=== PATIENT | female | born 1975 | race Caucasian/White ===

== ENCOUNTER 2017-12-02 07:18 | Inpatient (IN) | payer OTHER ==
[2017-12-02] MEDS ORDERED: SODIUM CHLORIDE 0.9% 1000 ML INFUS.BAG IV STA (07:49)
--- NOTE | 2017-12-02 07:49 | PDOC ---
History of Present Illness - General History Source: Patient Exam Limitations: No Limitations <Elana Cifuentes - Last Filed: 12/02/17 11:59> - History of Present Illness Initial Comments: Patient is a 42 year old female with PMHx of fibroids, anemia, who presents with 3 days of right flank pain. Patient states that her right flank pain began 3 days ago, rates her pain 10/10. She states that she took some Advil which initially helped her pain but her pain soon returned. This morning she reports that she woke up and vomited 1x, which prompted her to come to the ER. She also notes a subjective fever. She states that she had her period 3x this month and according to her primary this is normal stating that she is yolis-menopausal. She denies any chest pain, shortness of breath. She denies any pain or burning when she urinates, hematuria, hematochezia. Allergies: NKDA Social Hx: Denies EtOH, tobacco, or illicit drug use. [facility] <Alisa Rubin - Last Filed: 12/02/17 14:23> - General Chief Complaint: Pain, Acute Stated Complaint: BACK PAIN Time Seen by Provider: 12/02/17 07:49 Past History - Past Medical History Anemia: Yes COPD: No - Suicide/Smoking/Psychosocial Hx Smoking History: Never smoked Hx Alcohol Use: No Drug/Substance Use Hx: No <Elana Cifuentes - Last Filed: 12/02/17 11:59> <Alisa Rubin - Last Filed: 12/02/17 14:23> - Past Medical History Allergies/Adverse Reactions: Allergies Allergy/AdvReac Type Severity Reaction Status Date / Time No Known Allergies Allergy Verified 12/02/17 07:34 Home Medications: Ambulatory Orders NK [No Known Home Medication] 12/02/17 Review of Systems - Review of Systems Comments:: GENERAL/CONSTITUTIONAL: +subjective fevers No: chills, weakness, loss of appetite. HEAD, EYES, EARS, NOSE AND THROAT: No: change in vision, ear pain, discharge, sore throat, throat swelling. CARDIOVASCULAR: No: chest pain, lightheadedness, palpitations, syncope RESPIRATORY: No: cough, shortness of breath, wheezing, hemoptysis, stridor. GASTROINTESTINAL: +vomit (1x) No: nausea, abdominal cramping, diarrhea, rectal bleeding, constipation. GENITOURINARY: No: dysuria, hematuria, frequency, urgency, flank pain. MUSCULOSKELETAL: +Right flank pain. No: neck pain, joint pain. SKIN: No: lesions, pallor, rash or easy bruising. NEUROLOGIC: No: headache, vertigo, paresthesias, weakness ENDOCRINE: No: unexplained weight gain or loss HEMATOLOGIC/LYMPHATIC: No: anemia, easy bleeding, swelling nodes <Alisa Rubin - Last Filed: 12/02/17 14:23> *Physical Exam - Vital Signs Last Vital Signs Temp Pulse Resp BP Pulse Ox 101.8 F H 113 H 22 H 100/69 98 12/02/17 07:30 12/02/17 07:30 12/02/17 07:30 12/02/17 07:30 12/02/17 07:30 <EsauElana - Last Filed: 12/02/17 11:59> - Vital Signs Last Vital Signs Temp Pulse Resp BP Pulse Ox 101.8 F H 113 H 22 H 100/69 98 12/02/17 07:30 12/02/17 07:30 12/02/17 07:30 12/02/17 07:30 12/02/17 07:30 - Physical Exam Comments: GENERAL: The patient is in no acute distress. HEAD: Normal with no signs of trauma. EYES: PERRLA, EOMI, sclera anicteric, conjunctiva clear. ENT: Ears normal, nares patent, oropharynx clear without exudates. Moist mucous membranes. NECK: Normal range of motion, supple without lymphadenopathy, JVD, or masses. LUNGS: Breath sounds equal, clear to auscultation bilaterally. No wheezes, and no crackles. HEART:Tachycardic, regular rate and rhythm, normal S1 and S2 without murmur, rub or gallop. ABDOMEN: Soft, nontender, normoactive bowel sounds. No guarding, no rebound. BACK: Right CVA tenderness EXTREMITIES: Normal range of motion, no edema. No clubbing or cyanosis. No erythema, or tenderness. NEUROLOGICAL: Cranial nerves II through XII grossly intact. Normal speech. No focal neurological deficits. MUSCULOSKELETAL: Back nontender to palpation, no CVA tenderness SKIN: Warm to touch, dry, normal turgor, no rashes or lesions noted. <Alisa Rubin - Last Filed: 12/02/17 14:23> ED Treatment Course - LABORATORY CBC & Chemistry Diagram: 12/02/17 07:50 12/02/17 07:50 <Elana Cifuentes - Last Filed: 12/02/17 11:59> - LABORATORY CBC & Chemistry Diagram: 12/02/17 07:50 12/02/17 07:50 - RADIOLOGY Radiograph Interpretation: Chest x-ray Impression: No evidence of active pulmonary disease Reported By: Trent Sanders MD 12/02/17 11:[address] Impression: Essentially normal CT scan of the abdomen and pelvis with no evidence of urinary tract calculi, obstructive uropathy or acute pathology. Reported By: Aries Dunn MD 12/02/17 1122 <Alisa Rubin - Last Filed: 12/02/17 14:23> Medical Decision Making - Medical Decision Making 12/02/17 08:10 42 yo F presenting to the ER with Right flank pain x 3 days Pt febrile in ER no prior episodes like this DD includes: Pyelonephritis, Urosepsis, Infected Kidney Stone Will do: Labs/sepsis order set, IVF, Tylenol, UA, Spiral CT 12/02/17 09:12 Laboratory Tests 12/02/17 12/02/17 07:50 08:25 WBC 12.1 H Hgb 11.8 Hct 35.5 Plt Count 235 Absolute Neuts (auto) 10.6 H Neutrophils % 87.6 H VBG pH 7.43 H POC VBG pCO2 34.3 L POC VBG pO2 52.1 H Mixed VBG HCO3 22.4 12/02/17 09:13 CXR: nml 12/02/17 09:22 Laboratory Tests 12/02/17 12/02/17 07:50 07:50 Sodium 138 Potassium 3.8 Chloride 107 Carbon Dioxide 24 BUN 12 Creatinine 0.8 Random Glucose 129 H Lactic Acid 0.9 12/02/17 09:24 Laboratory Tests 12/02/17 08:57 Urine HCG, Qual Negative 12/02/17 09:34 Laboratory Tests 12/02/17 09:00 Urine Blood 1+ H Urine Nitrite Positive Ur Leukocyte Esterase 3+ H Urine WBC (Auto) 1119 Urine RBC (Auto) 17 Ur Epithelial Cells Few Urine Bacteria Many Hyaline Casts 10 Urine Mucus Few Will do spiral Eval for obstructing stone Will plan to admit 12/02/17 10:18 Twelve-lead EKG was performed and reviewed by me. There is normal sinus rhythm with a normal rate. The axis is normal. The intervals are normal. There are no ST or T wave abnormalities. Impression: Normal twelve-lead EKG 12/02/17 11:44 CT negative I have reviewed results with this patient She was nauseous prior to arrival, continues to have pain Would be willing to stay in the hospital Will place on observation Clinical Impression: Pyelonephritis, initial presentation <Elana Cifuentes - Last Filed: 12/02/17 11:59> *DC/Admit/Observation/Transfer - Discharge Dispostion Decision to Admit order: Yes <Elana Cifuentes - Last Filed: 12/02/17 11:59> - Attestations Scribe Attestion: 12/02/17 08:16 Documentation prepared by Alisa Rubin, acting as medical staffing coordinator for Elana Cifuentes MD. <Alisa Rubin - Last Filed: 12/02/17 14:23> Diagnosis at time of Disposition: Pyelonephritis - Discharge Dispostion Condition at time of disposition: Stable
[2017-12-02] MEDS ORDERED: ACETAMINOPHEN 1000 MG/100 ML VIAL (NON FORMULARY) IVPB ONE (08:07)
[2017-12-02 08:53] LABS: VENOUS PC02 34.3 mmHg (38-52); VENOUS PH 7.43 (7.32-7.42); VENOUS PO2 52.1 mmHg (28-48)
[2017-12-02 08:55] LABS: BASO % 0.2 % (0-2.0); HEMATOCRIT 35.5 % (32.4-45.2); HEMOGLOBIN 11.8 GM/dL (10.7-15.3); LYMPH % 6.2 % (8-40); MCH 30.4 pg (25.7-33.7); MCHC 33.2 g/dl (32.0-36.0); MEAN CELL VOLUME 91.7 fl (80-96); MEAN PLT VOLUME 8.4 fl (7.5-11.1); NEUT % 87.6 % (42.8-82.8); PLATELET COUNT 235 K/MM3 (134-434); RBC 3.87 M/mm3 (3.60-5.2); RDW 14.2 % (11.6-15.6); WHITE BLOOD COUNT 12.1 K/mm3 (4.0-10.0)
[2017-12-02] MEDS ORDERED: ACETAMINOPHEN INJECTION 100 ML IVPB ONE (09:01)
[2017-12-02 09:08] LABS: INR 1.07 (0.83-1.09); PROTHROMBIN TIME (PATIENT) 12.1 SEC (9.7-13.0)
[2017-12-02 09:11] LABS: ACTIVATED PTT 28.9 SECONDS (25.2-36.5)
[2017-12-02 09:17] LABS: ALBUMIN 3.7 g/dl (3.4-5.0); ALK PHOS 60 U/L (45-117); ANION GAP 7 MMOL/L (8-16); BILIRUBIN,TOTAL 0.6 mg/dL (0.2-1); BLOOD UREA NITROGEN 12 mg/dL (7-18); CALCIUM 8.7 mg/dL (8.5-10.1); CHLORIDE 107 mmol/L (98-107); CO2 24 mmol/L (21-32); CREATININE 0.8 mg/dL (0.55-1.3); GLUCOSE,RANDOM 129 mg/dL (74-106); POTASSIUM 3.8 mmol/L (3.5-5.1); SGOT/AST 16 U/L (15-37); SGPT/ALT 24 U/L (13-61); SODIUM 138 mmol/L (136-145)
[2017-12-02 09:21] LABS: URINE APPEARANCE CLOUDY; URINE BILIRUBIN NEGATIVE (<2.0 mg/dL); URINE COLOR DKYELLOW; URINE GLUCOSE (UA) NEGATIVE (NEGATIVE); URINE KETONE 1+ (NEGATIVE); URINE NITRITE POSITIVE (NEGATIVE); URINE UROBILINOGEN NEGATIVE mg/dL (0.2-1.0)
[2017-12-02] MEDS ORDERED: CEFTRIAXONE 1 GM in DEXTROSE 5%-WATER - 50 ML IVPB ONE (09:22)
[2017-12-02 09:25] LABS: URINE LEUK ESTERASE 3+ (NEGATIVE); URINE PROTEIN 2+ (NEGATIVE)
[2017-12-02 09:31] LABS: EPI CELLS FEW /HPF (FEW); URINE BACTERIA MANY /hpf (NONE SEEN); URINE HYALINE CAST 10 /lpf; URINE MUCUS FEW
[2017-12-02] MEDS ORDERED: CEFTRIAXONE 1 GM/50 ML BAG ONE (09:40)
[2017-12-02] MEDS ORDERED: SODIUM CHLORIDE 1,000 ML IV STA (11:44)
--- NOTE | 2017-12-02 13:21 | EKG ---
Test Reason : Blood Pressure : / mmHG Vent. Rate : 071 BPM Atrial Rate : 071 BPM P-R Int : 130 ms QRS Dur : 098 ms QT Int : 396 ms P-R-T Axes : 049 025 035 degrees QTc Int : 430 ms NORMAL SINUS RHYTHM NORMAL ECG NO PREVIOUS ECGS AVAILABLE Confirmed by ECTOR VINSON, SAULO ([id number]) on 12/02/2017 1:20:49 PM Referred By: Confirmed By:SAULO BARNEY MD
[2017-12-02 15:05] VITALS: BMI 213.4
[2017-12-02] MEDS ORDERED: FLU VACCINE QUAD 60 MCG/0.5 ML (MDV 18-19) IM ONE (15:30)
--- NOTE | 2017-12-02 15:47 | HP ---
Admitting History and Physical - Primary Care Physician PCP: Jose Garcia - Admission History of Present Illness: Patient is a 42 year old female with PMHx of fibroids, anemia, who presents with 3 days of right flank pain. Patient states that her right flank pain began 3 days ago, rates her pain 10/10. She states that she took some Advil which initially helped her pain but her pain soon returned. This morning she reports that she woke up and vomited 1x, which prompted her to come to the ER. She also notes a subjective fever. She states that she had her period 3x this month and according to her primary this is normal stating that she is yolis-menopausal. - Past Medical History ...LMP: 11/25/17 ...: No - Smoking History Smoking history: Never smoked - Alcohol/Substance Use Hx Alcohol Use: No Home Medications - Allergies Allergies/Adverse Reactions: Allergies Allergy/AdvReac Type Severity Reaction Status Date / Time No Known Allergies Allergy Verified 12/02/17 07:34 - Home Medications Home Medications: Ambulatory Orders NK [No Known Home Medication] 12/02/17 Physical Examination Vital Signs: Vital Signs Temperature 98.2 F 12/02/17 11:59 Pulse Rate 93 H 12/02/17 11:59 Respiratory Rate 18 12/02/17 11:59 Blood Pressure 132/97 12/02/17 11:59 O2 Sat by Pulse Oximetry (%) 99 12/02/17 11:00 Constitutional: Yes: No Distress HENT: Yes: Atraumatic Neck: Yes: Supple Cardiovascular: Yes: Regular Rate and Rhythm Respiratory: Yes: CTA Bilaterally Gastrointestinal: Yes: Normal Bowel Sounds Renal/: Yes: CVA Tenderness - Right Extremities: Yes: WNL Edema: No Peripheral Pulses WNL: Yes Neurological: Yes: Alert, Oriented Labs: CBC, BMP 12/02/17 07:50 12/02/17 07:50 Problem List - Problems (1) Pyelonephritis Assessment/Plan: on iv abx prbn pain mes cxs sent id consult Code(s): N12 - TUBULO-INTERSTITIAL NEPHRITIS, NOT SPCF ACUTE OR CHRONIC Assessment/Plan Laboratory Tests 12/02/17 12/02/17 12/02/17 07:50 07:50 07:50 WBC 12.1 H RBC 3.87 Hgb 11.8 Hct 35.5 MCV 91.7 MCH 30.4 MCHC 33.2 RDW 14.2 Plt Count 235 MPV 8.4 Absolute Neuts (auto) 10.6 H Neutrophils % 87.6 H Lymphocytes % 6.2 L Monocytes % 6.0 Eosinophils % 0.0 Basophils % 0.2 Nucleated RBC % 0 PT with INR 12.10 INR 1.07 PTT (Actin FS) 28.9 VBG pH POC VBG pCO2 POC VBG pO2 Mixed VBG HCO3 Sodium 138 Potassium 3.8 Chloride 107 Carbon Dioxide 24 Anion Gap 7 L BUN 12 Creatinine 0.8 Creat Clearance w eGFR > 60 Random Glucose 129 H Lactic Acid Calcium 8.7 Total Bilirubin 0.6 AST 16 ALT 24 Alkaline Phosphatase 60 Troponin I < 0.02 Total Protein 7.0 Albumin 3.7 Urine Color Urine Appearance Urine pH Ur Specific [place] Urine Protein Urine Glucose (UA) Urine Ketones Urine Blood Urine Nitrite Urine Bilirubin Urine Urobilinogen Ur Leukocyte Esterase Urine WBC (Auto) Urine RBC (Auto) Ur Epithelial Cells Urine Bacteria Hyaline Casts Urine Mucus Urine HCG, Qual 12/02/17 12/02/17 12/02/17 07:50 08:25 08:57 WBC RBC Hgb Hct MCV MCH MCHC RDW Plt Count MPV Absolute Neuts (auto) Neutrophils % Lymphocytes % Monocytes % Eosinophils % Basophils % Nucleated RBC % PT with INR INR PTT (Actin FS) VBG pH 7.43 H POC VBG pCO2 34.3 L POC VBG pO2 52.1 H Mixed VBG HCO3 22.4 Sodium Potassium Chloride Carbon Dioxide Anion Gap BUN Creatinine Creat Clearance w eGFR Random Glucose Lactic Acid 0.9 Calcium Total Bilirubin AST ALT Alkaline Phosphatase Troponin I Total Protein Albumin Urine Color Urine Appearance Urine pH Ur Specific [place] Urine Protein Urine Glucose (UA) Urine Ketones Urine Blood Urine Nitrite Urine Bilirubin Urine Urobilinogen Ur Leukocyte Esterase Urine WBC (Auto) Urine RBC (Auto) Ur Epithelial Cells Urine Bacteria Hyaline Casts Urine Mucus Urine HCG, Qual Negative 12/02/17 09:00 WBC RBC Hgb Hct MCV MCH MCHC RDW Plt Count MPV Absolute Neuts (auto) Neutrophils % Lymphocytes % Monocytes % Eosinophils % Basophils % Nucleated RBC % PT with INR INR PTT (Actin FS) VBG pH POC VBG pCO2 POC VBG pO2 Mixed VBG HCO3 Sodium Potassium Chloride Carbon Dioxide Anion Gap BUN Creatinine Creat Clearance w eGFR Random Glucose Lactic Acid Calcium Total Bilirubin AST ALT Alkaline Phosphatase Troponin I Total Protein Albumin Urine Color Dkyellow Urine Appearance Cloudy Urine pH 6.0 Ur Specific [place] 1.020 Urine Protein 2+ H Urine Glucose (UA) Negative Urine Ketones 1+ H Urine Blood 1+ H Urine Nitrite Positive Urine Bilirubin Negative Urine Urobilinogen Negative Ur Leukocyte Esterase 3+ H Urine WBC (Auto) 1119 Urine RBC (Auto) 17 Ur Epithelial Cells Few Urine Bacteria Many Hyaline Casts 10 Urine Mucus Few Urine HCG, Qual Active Medications Generic Name Dose Route Start Last Admin Trade Name Mu PRN Reason Stop Dose Admin Sodium Chloride 1,000 mls @ 125 mls/hr 12/02/17 11:44 12/02/17 12:15 Normal Saline - IV 12/02/17 19:43 125 mls/hr ASDIR STA Administration Active Medications Generic Name Dose Route Start Last Admin Trade Name Mu PRN Reason Stop Dose Admin Acetaminophen 650 mg 12/02/17 15:52 12/03/17 13:33 Tylenol - PO 650 mg Q6H PRN Administration FEVER Piperacillin Sod/Tazobactam 50 mls @ 100 mls/hr 12/03/17 02:00 12/03/17 09:18 Sod 3.375 gm/ Dextrose IVPB 100 mls/hr Q8H-IV PALMER Administration Protocol Morphine Sulfate 3 mg 12/02/17 15:52 Morphine Sulfate IVPUSH Q4H PRN PAIN LEVEL 4 - 6
[2017-12-02] MEDS ORDERED: MORPHINE SULFATE 2 MG/ML VIAL IVPUSH PRN (15:52)
[2017-12-02] MEDS: ACETAMINOPHEN 325 MG TABLET (FP) PO PRN ×2 (16:34→22:06)
[2017-12-03] MEDS ORDERED: DEXTROSE 5%-WATER - 50 ML IVPB ONE ×4 (01:13→23:52)
[2017-12-03] MEDS ORDERED: PIPERACILLIN/TAZOBACTAM 3.375 GM VIAL IVPB ONE ×4 (01:13→23:52)
[2017-12-03] MEDS: PIPERACILLIN/TAZOB 3.375 GM 3.375 GM in DEXTROSE 5%-WATER - 50 ML IVPB SCH ×3 (01:33→17:21)
[2017-12-03] MEDS: ACETAMINOPHEN 325 MG TABLET (FP) PO PRN ×3 (06:38→19:52)
[2017-12-03 08:25] LABS: ALBUMIN 2.9 g/dl (3.4-5.0); ALK PHOS 59 U/L (45-117); ANION GAP 8 MMOL/L (8-16); BILIRUBIN,TOTAL 0.4 mg/dL (0.2-1); BLOOD UREA NITROGEN 9 mg/dL (7-18); CALCIUM 7.7 mg/dL (8.5-10.1); CHLORIDE 111 mmol/L (98-107); CO2 21 mmol/L (21-32); CREATININE 0.6 mg/dL (0.55-1.3); GLUCOSE,RANDOM 107 mg/dL (74-106); POTASSIUM 3.7 mmol/L (3.5-5.1); SGOT/AST 18 U/L (15-37); SGPT/ALT 23 U/L (13-61); SODIUM 140 mmol/L (136-145); TOT PROT 5.9 g/dl (6.4-8.2)
[2017-12-03 11:20] LABS: BASO % 0.4 % (0-2.0); HEMATOCRIT 32.6 % (32.4-45.2); HEMOGLOBIN 10.7 GM/dL (10.7-15.3); LYMPH % 11.5 % (8-40); MCH 30.5 pg (25.7-33.7); MCHC 32.9 g/dl (32.0-36.0); MEAN CELL VOLUME 92.7 fl (80-96); MEAN PLT VOLUME 8.7 fl (7.5-11.1); MONO % 9.2 % (3.8-10.2); NEUT % 78.9 % (42.8-82.8); PLATELET COUNT 197 K/MM3 (134-434); RBC 3.51 M/mm3 (3.60-5.2); RDW 14.4 % (11.6-15.6); WHITE BLOOD COUNT 10.5 K/mm3 (4.0-10.0)
--- NOTE | 2017-12-03 14:35 | CON.ID ---
Consult Consult Specialty:: fever,flank pain,leukocytosis Reason for Consultation:: pyelo,uti,fever - History of Present Illness Chief Complaint: rt flank pain,fever History of Present Illness: 42 year old female with PMHx of fibroids, anemia, who presents with 3 days of right flank pain. Patient states that her right flank pain began 3 days ago, rates her pain 10/10. She states that she took some Advil which initially helped her pain but her pain soon returned. This morning she reports that she woke up and vomited 1x, which prompted her to come to the ER. She also notes a subjective fever. She states that she had her period 3x this month and according to her primary this is normal stating that she is yolis-menopausal. patient still conitnues to have flank pain and has been running fevers on the higher side continuously - History Source History Provided By: Patient Limitations to Obtaining History: No Limitations - Past Medical History ...LMP: 11/25/17 ...: No - Alcohol/Substance Use Hx Alcohol Use: No - Smoking History Smoking history: Never smoked Home Medications - Allergies Allergies/Adverse Reactions: Allergies Allergy/AdvReac Type Severity Reaction Status Date / Time No Known Allergies Allergy Verified 12/02/17 07:34 - Home Medications Home Medications: Ambulatory Orders NK [No Known Home Medication] 12/02/17 Review of Systems - Review of Systems Constitutional: reports: Fever Eyes: reports: No Symptoms HENT: reports: No Symptoms Neck: reports: No Symptoms Cardiovascular: reports: No Symptoms Respiratory: reports: No Symptoms Gastrointestinal: reports: No Symptoms Genitourinary: reports: Flank Pain Musculoskeletal: reports: No Symptoms Integumentary: reports: No Symptoms Neurological: reports: No Symptoms Endocrine: reports: No Symptoms Hematology/Lymphatic: reports: No Symptoms Psychiatric: reports: No Symptoms Physical Exam Vital Signs: Vital Signs Temperature 102.3 F H 12/03/17 14:20 Pulse Rate 97 H 12/03/17 14:20 Respiratory Rate 16 12/03/17 14:20 Blood Pressure 122/54 L 12/03/17 14:20 O2 Sat by Pulse Oximetry (%) 98 12/02/17 21:00 Constitutional: Yes: Well Nourished, Calm, Moderate Distress Eyes: Yes: Conjunctiva Clear Cardiovascular: Yes: Regular Rate and Rhythm Respiratory: Yes: Regular, CTA Bilaterally Gastrointestinal: Yes: Normal Bowel Sounds, Soft Renal/: Yes: CVA Tenderness - Right, Other Musculoskeletal: Yes: WNL Extremities: Yes: WNL Neurological: Yes: Alert, Oriented Psychiatric: Yes: Alert, Oriented Labs: CBC, BMP 12/03/17 06:39 12/03/17 06:39 Imaging - Results Chest X-ray: Report Reviewed, Image Reviewed Cat Scan: Report Reviewed, Image Reviewed Assessment/Plan this patient coming with fevers which have been going and also rt flank pain i think patient has pyelonephritis,ct scan not that impressive but her clinical picture is also her urine is positive pyelo uti flank pain fevers plan will switch to zosyn if patient continues to spike will cx her rest continue current mgmt await for identification of the organism
--- NOTE | 2017-12-03 17:09 | PN ---
Progress Note, Physician History of Present Illness: feeling better - Current Medication List Current Medications: Active Medications Acetaminophen (Tylenol -) 650 mg PO Q6H PRN PRN Reason: FEVER Last Admin: 12/03/17 13:33 Dose: 650 mg Piperacillin Sod/Tazobactam (Sod 3.375 gm/ Dextrose) 50 mls @ 100 mls/hr IVPB Q8H-IV PALMER; Protocol Last Admin: 12/03/17 09:18 Dose: 100 mls/hr Morphine Sulfate (Morphine Sulfate) 3 mg IVPUSH Q4H PRN PRN Reason: PAIN LEVEL 4 - 6 - Objective Vital Signs: Vital Signs Temperature 99.1 F 12/03/17 17:03 Pulse Rate 78 12/03/17 17:03 Respiratory Rate 20 12/03/17 17:03 Blood Pressure 108/57 L 12/03/17 17:03 O2 Sat by Pulse Oximetry (%) 98 12/02/17 21:00 Constitutional: Yes: No Distress HENT: Yes: Atraumatic Neck: Yes: Supple Cardiovascular: Yes: Regular Rate and Rhythm Respiratory: Yes: CTA Bilaterally Gastrointestinal: Yes: Normal Bowel Sounds Extremities: Yes: WNL Neurological: Yes: Alert, Oriented Labs: CBC, BMP 12/03/17 06:39 12/03/17 06:39 INR, PTT INR 1.07 (0.83-1.09) 12/02/17 07:50 Problem List - Problems (1) Pyelonephritis Assessment/Plan: on iv abx prbn pain mes cxs seen id consult Code(s): N12 - TUBULO-INTERSTITIAL NEPHRITIS, NOT SPCF ACUTE OR CHRONIC
[2017-12-04] MEDS: PIPERACILLIN/TAZOB 3.375 GM 3.375 GM in DEXTROSE 5%-WATER - 50 ML IVPB SCH ×3 (01:30→18:53)
[2017-12-04] MEDS: ACETAMINOPHEN 325 MG TABLET (FP) PO PRN (02:11)
[2017-12-04] MEDS ORDERED: DEXTROSE 5%-WATER - 50 ML IVPB ONE ×3 (09:46→23:36)
[2017-12-04] MEDS ORDERED: PIPERACILLIN/TAZOBACTAM 3.375 GM VIAL IVPB ONE ×3 (09:46→23:36)
--- NOTE | 2017-12-04 11:46 | PN ---
Progress Note, Physician History of Present Illness: improving flank pain better continues to spike fever high grade - Current Medication List Current Medications: Active Medications Acetaminophen (Tylenol -) 650 mg PO Q6H PRN PRN Reason: FEVER Last Admin: 12/04/17 02:11 Dose: 650 mg Piperacillin Sod/Tazobactam (Sod 3.375 gm/ Dextrose) 50 mls @ 100 mls/hr IVPB Q8H-IV PALMER; Protocol Last Admin: 12/04/17 10:01 Dose: 100 mls/hr Morphine Sulfate (Morphine Sulfate) 3 mg IVPUSH Q4H PRN PRN Reason: PAIN LEVEL 4 - 6 - Objective Vital Signs: Vital Signs Temperature 99 F 12/04/17 09:34 Pulse Rate 80 12/04/17 09:34 Respiratory Rate 20 12/04/17 09:34 Blood Pressure 107/55 L 12/04/17 09:34 O2 Sat by Pulse Oximetry (%) 98 12/03/17 21:00 Constitutional: Yes: No Distress, Calm Cardiovascular: Yes: Regular Rate and Rhythm Respiratory: Yes: Regular, CTA Bilaterally Gastrointestinal: Yes: Normal Bowel Sounds, Soft Musculoskeletal: Yes: WNL Extremities: Yes: WNL Neurological: Yes: Alert, Oriented Psychiatric: Yes: Alert, Oriented Labs: CBC, BMP 12/03/17 06:39 12/03/17 06:39 INR, PTT INR 1.07 (0.83-1.09) 12/02/17 07:50 Assessment/Plan this patient coming with fevers which have been going and also rt flank pain i think patient has pyelonephritis,ct scan not that impressive but her clinical picture is also her urine is positive pyelo uti flank pain fevers still with fevers,monitor closely plan continue zosyn await for cx to be back
--- NOTE | 2017-12-04 18:51 | PN ---
Progress Note, Physician History of Present Illness: feeling better - Current Medication List Current Medications: Active Medications Acetaminophen (Tylenol -) 650 mg PO Q6H PRN PRN Reason: FEVER Last Admin: 12/04/17 02:11 Dose: 650 mg Piperacillin Sod/Tazobactam (Sod 3.375 gm/ Dextrose) 50 mls @ 100 mls/hr IVPB Q8H-IV PALMER; Protocol Last Admin: 12/04/17 10:01 Dose: 100 mls/hr Morphine Sulfate (Morphine Sulfate) 3 mg IVPUSH Q4H PRN PRN Reason: PAIN LEVEL 4 - 6 - Objective Vital Signs: Vital Signs Temperature 98.5 F 12/04/17 17:31 Pulse Rate 72 12/04/17 17:31 Respiratory Rate 18 12/04/17 17:31 Blood Pressure 117/70 12/04/17 17:31 O2 Sat by Pulse Oximetry (%) 98 12/03/17 21:00 Constitutional: Yes: No Distress HENT: Yes: Atraumatic Neck: Yes: Supple Cardiovascular: Yes: Regular Rate and Rhythm Respiratory: Yes: CTA Bilaterally Gastrointestinal: Yes: Normal Bowel Sounds Extremities: Yes: WNL Neurological: Yes: Alert, Oriented Labs: CBC, BMP 12/03/17 06:39 12/03/17 06:39 INR, PTT INR 1.07 (0.83-1.09) 12/02/17 07:50 Problem List - Problems (1) Pyelonephritis Assessment/Plan: on iv abx...will ask id to switch to oral cxs seen id consult Code(s): N12 - TUBULO-INTERSTITIAL NEPHRITIS, NOT SPCF ACUTE OR CHRONIC
[2017-12-05] MEDS: PIPERACILLIN/TAZOB 3.375 GM 3.375 GM in DEXTROSE 5%-WATER - 50 ML IVPB SCH ×2 (01:18→09:53)
[2017-12-05] MEDS ORDERED: DEXTROSE 5%-WATER - 50 ML IVPB ONE (09:45)
[2017-12-05] MEDS ORDERED: PIPERACILLIN/TAZOBACTAM 3.375 GM VIAL IVPB ONE (09:45)
--- NOTE | 2017-12-05 12:36 | PN ---
Progress Note, Physician History of Present Illness: Pt states she feels well. Denies flank pain/dysuria. She has been afebrile and tolerating antibiotics. - Current Medication List Current Medications: Active Medications Acetaminophen (Tylenol -) 650 mg PO Q6H PRN PRN Reason: FEVER Last Admin: 12/04/17 02:11 Dose: 650 mg Piperacillin Sod/Tazobactam (Sod 3.375 gm/ Dextrose) 50 mls @ 100 mls/hr IVPB Q8H-IV PALMER; Protocol Last Admin: 12/05/17 09:53 Dose: 100 mls/hr Morphine Sulfate (Morphine Sulfate) 3 mg IVPUSH Q4H PRN PRN Reason: PAIN LEVEL 4 - 6 - Objective Vital Signs: Vital Signs Temperature 98.2 F 12/05/17 06:00 Pulse Rate 60 12/05/17 06:00 Respiratory Rate 18 12/05/17 06:00 Blood Pressure 108/59 L 12/05/17 06:00 O2 Sat by Pulse Oximetry (%) 98 12/04/17 21:00 Constitutional: Yes: No Distress, Calm Cardiovascular: Yes: Regular Rate and Rhythm Respiratory: Yes: CTA Bilaterally Gastrointestinal: Yes: Normal Bowel Sounds, Soft Genitourinary: Yes: WNL Extremities: Yes: WNL Edema: No Integumentary: Yes: WNL Neurological: Yes: Alert, Oriented Labs: CBC, BMP 12/03/17 06:39 12/03/17 06:39 INR, PTT INR 1.07 (0.83-1.09) 12/02/17 07:50 Microbiology 12/04/17 11:20 Urine - Urine Clean Catch Urine Culture - Final NO GROWTH OBTAINED 12/02/17 07:50 Blood - Peripheral Venous Blood Culture - Preliminary NO GROWTH OBTAINED AFTER 72 HOURS, INCUBATION TO CONTINUE FOR 2 DAYS. 12/02/17 07:50 Blood - Peripheral Venous Blood Culture - Preliminary NO GROWTH OBTAINED AFTER 72 HOURS, INCUBATION TO CONTINUE FOR 2 DAYS. 12/03/17 19:20 Blood - Peripheral Venous Blood Culture - Preliminary NO GROWTH OBTAINED AFTER 24 HOURS, INCUBATION TO CONTINUE FOR 4 DAYS. 12/03/17 18:00 Blood - Peripheral Venous Blood Culture - Preliminary NO GROWTH OBTAINED AFTER 24 HOURS, INCUBATION TO CONTINUE FOR 4 DAYS. 12/02/17 08:57 Urine - Urine Clean Catch Urine Culture - Final Escherichia Coli Problem List - Problems (1) Pyelonephritis Code(s): N12 - TUBULO-INTERSTITIAL NEPHRITIS, NOT SPCF ACUTE OR CHRONIC Assessment/Plan 42 y.o. female presenting with fever and Rt flank pain. E. coli UTI/Acute pyelonephritis -- fever and symptoms resolved, latest urine culture with no growth -- from ID point of view may switch to Levaquin 750 mg po daily x 4 doses f/u with PMD pt clinically stable at this point
--- NOTE | 2017-12-05 14:04 | DS ---
Physical Examination Vital Signs: Vital Signs Temperature 98.2 F 12/05/17 06:00 Pulse Rate 60 12/05/17 06:00 Respiratory Rate 18 12/05/17 06:00 Blood Pressure 108/59 L 12/05/17 06:00 O2 Sat by Pulse Oximetry (%) 98 12/04/17 21:00 Constitutional: Yes: No Distress HENT: Yes: Atraumatic Neck: Yes: Supple Cardiovascular: Yes: Regular Rate and Rhythm Respiratory: Yes: CTA Bilaterally Gastrointestinal: Yes: Normal Bowel Sounds Extremities: Yes: WNL Neurological: Yes: Alert, Oriented Labs: CBC, BMP 12/03/17 06:39 12/03/17 06:39 Discharge Summary Reason For Visit: PYELONEPHRITIS Current Active Problems Pyelonephritis (Acute) Condition: Stable - Instructions Diet, Activity, Other Instructions: see md next week Referrals: Jose Garcia MD [Staff Physician] - Greer Posey MD [Primary Care Provider] - Disposition: HOME - Home Medications Comprehensive Discharge Medication List: Ambulatory Orders levoFLOXacin [Levaquin] 750 mg PO DAILY #4 tab 12/05/17 dc home fu pmd next week
[2017-12-05 17:04] VITALS: BP 119/60; PULSE 64; TEMP 98.8
== END 2017-12-05 17:55 | disposition home or self-care (01) | DRG 463 ==
LOC: JER 07:18 → JERBED 11:59 → J8W 15:05
PROVIDERS: ADMIT Internal Medicine; ATTEND Internal Medicine
DX: N39.0 Urinary tract infection, site not specified (principal); N12 Tubulo-interstitial nephritis, not specified as acute or chronic; B96.20 Unspecified Escherichia coli [E. coli] as the cause of diseases classified elsewhere; D25.9 Leiomyoma of uterus, unspecified; D64.9 Anemia, unspecified; R50.9 Fever, unspecified
CPT/HCPCS: 36415; 71045-TC-FY; 74176; 80053; 81003; 81015; 82803; 83605; 84484; 84703; 85025; 85610; 85730; 87040; 87086; 87186; 93005; 93010; 99283-25; J0131; J7030